=== PATIENT | female | born 1990 | race Caucasian/White ===

== ENCOUNTER 2017-03-15 11:42 | Emergency (ER) | payer MEDICAID, OTHER ==
[2017-03-15 11:49] VITALS: BP 137/80; PULSE 80; TEMP 97; O2SAT 100
[2017-03-15 11:50] VITALS: BMI 22.6
--- NOTE | 2017-03-15 12:10 | ED PDOC ---
HPI: General Adult Time Seen by Provider: 03/15/17 12:09 Chief Complaint (Nursing): Allergic Reaction Chief Complaint (Provider): possible allergic reaction History Per: Patient Additional Complaint(s): 26-year-old female presents to emergency department with swelling and erythema to both upper eyelids status post placement of last extensions 2 days ago. Patient believes she developed an allergy to the glue from the lash extensions. Patient applied topical Benadryl cream but this did not help. She denies any shortness of breath or throat discomfort. No rash noted. Past Medical History Reviewed: Historical Data, Nursing Documentation, Vital Signs Vital Signs: Last Vital Signs Temp 97 F L 03/15/17 11:49 Pulse 80 03/15/17 11:49 Resp BP 137/80 03/15/17 11:49 Pulse Ox 100 03/15/17 13:08 - Medical History PMH: Anxiety - Surgical History Surgical History: No Surg Hx - Family History Family History: States: No Known Family Hx - Living Arrangements Living Arrangements: With Family - Social History Current smoker - smoking cessation education provided: No Alcohol: None Drugs: Denies - Home Medications Home Medications: Ambulatory Orders Medication Instructions Recorded Prednisone 50 mg PO DAILY #5 tablet 03/15/17 - Allergies Allergies/Adverse Reactions: Allergies Allergy/AdvReac Type Severity Reaction Status Date / Time No Known Allergies Allergy Verified 11/20/15 13:22 Review of Systems ROS Statement: Except As Marked, All Systems Reviewed And Found Negative Constitutional: Negative for: Fever Eyes: Positive for: Other (swelling and redness to bilateral upper eyelids) ENT: Negative for: Throat Swelling Respiratory: Negative for: Cough, Shortness of Breath, SOB with Exertion Physical Exam - Reviewed Nursing Documentation Reviewed: Yes Vital Signs Reviewed: Yes - Physical Exam Appears: Positive for: Well, Non-toxic, No Acute Distress Head Exam: Positive for: ATRAUMATIC, NORMAL INSPECTION Skin: Positive for: Normal Color. Negative for: Rash Eye Exam: Positive for: EOMI, PERRL, Other (Edema and erythema noted to bilateral upper eyelids and bilateral periorbital regions, appearance consistent with localized allergic reaction) Cardiovascular/Chest: Positive for: Regular Rate, Rhythm Respiratory: Positive for: Normal Breath Sounds. Negative for: Wheezing, Respiratory Distress Neurologic/Psych: Positive for: Alert, Oriented - ECG O2 Sat by Pulse Oximetry: 100 Pulse Ox Interpretation: Normal Medical Decision Making Medical Decision Makin26 year old with localized allergic reaction Plan: test PO prednisone 60 mg dose in ED Rx given for 5 day course of prednisone, patient was also instructed to take 2 tabs benadryl q 6 hrs. Patient was instructed to avoid further use of eyelash extensions. Advised PMD follow up in 2-3 days. Disposition - Clinical Impression Clinical Impression: Allergic reaction - Patient ED Disposition Is Patient to be Admitted: No Counseled Patient/Family Regarding: Diagnosis, Need For Followup, Rx Given - Disposition Referrals: [facility] [Outside] Disposition: Routine/Home Disposition Time: 13:08 Condition: STABLE Additional Instructions: Avoid further use of lash extensions. Take prescription meds as directed. Take 2 tablets of [id number] Benadryl every 6 hours. Follow-up with primary doctor or clinic in 2-3 days. Prescriptions: Prednisone 50 mg PO DAILY #5 tablet Instructions: General Allergic Reaction (ED)
[2017-03-15] MEDS ORDERED: PrednisoLONE 15 mg/5 ml Oral Syrup (240 ml) ONE (12:47)
== END 2017-03-15 13:25 | disposition home or self-care (01) ==
LOC: H.ER 11:42
DX: T78.40XA Allergy, unspecified, initial encounter (principal); F41.9 Anxiety disorder, unspecified

== ENCOUNTER 2018-03-27 21:24 | Emergency (ER) | payer SELFPAY ==
[2018-03-27 21:25] VITALS: BMI 22.6
[2018-03-27 21:33] VITALS: BP 149/89; TEMP 98.4; O2SAT 96
--- NOTE | 2018-03-27 22:03 | ED PDOC ---
HPI: CCC, URI, Sore Throat Time Seen by Provider: 03/27/18 21:58 Chief Complaint (Nursing): ENT Problem Chief Complaint (Provider): Sore Throat History Per: Patient History/Exam Limitations: no limitations Have you had recent travel within the past 21 days to any of the following countries: [place], [place], [place] or [place]?: No Onset/Duration Of Symptoms: Days (six), Persistent Current Symptoms Are (Timing): Still Present Associated Symptoms: Sore Throat. denies: Cough Past Medical History Reviewed: Historical Data, Nursing Documentation, Vital Signs Vital Signs: Last Vital Signs Temp 98.4 F 03/27/18 21:30 Pulse 100 H 03/27/18 21:30 Resp 16 03/27/18 21:30 BP 149/89 03/27/18 21:30 Pulse Ox 96 03/27/18 22:04 - Medical History PMH: Anxiety - Family History Family History: States: Unknown Family Hx - Home Medications Home Medications: Ambulatory Orders Medication Instructions Recorded Prednisone 50 mg PO DAILY #5 tablet 03/15/17 Amoxicillin/Clavulanate [Augmentin 10 ml PO BID #200 ml 03/27/18 400-57] Lidocaine 2% Viscous 5 ml MM QID #100 ml 03/27/18 - Allergies Allergies/Adverse Reactions: Allergies Allergy/AdvReac Type Severity Reaction Status Date / Time No Known Allergies Allergy Verified 11/20/15 13:22 Review of Systems ROS Statement: Except As Marked, All Systems Reviewed And Found Negative Constitutional: Negative for: Fever ENT: Positive for: Throat Pain, Throat Swelling. Negative for: Mouth Swelling Physical Exam - Reviewed Nursing Documentation Reviewed: Yes Vital Signs Reviewed: Yes - Physical Exam Appears: Positive for: Well, Non-toxic, No Acute Distress. Negative for: Uncomfortable Head Exam: Positive for: ATRAUMATIC, NORMAL INSPECTION Skin: Positive for: Normal Color, Warm, Dry ENT: Positive for: Normal ENT Inspection, Pharynx Is (erythematous with mild exudate bilaterally), Pharyngeal Erythema, Tonsillar Exudate, Tonsillar Swelling (tonsils are +3 bilaterally and edematous) Neck: Positive for: Normal, Painless ROM, Supple. Negative for: Decreased ROM Cardiovascular/Chest: Positive for: Regular Rate, Rhythm Respiratory: Positive for: Normal Breath Sounds Pulses-Carotid (L): 2+ Pulses-Carotid (R): 2+ Pulses-Radial (L): 2+ Pulses-Radial (R): 2+ Lymphatic: Positive for: Adenopathy. Negative for: Axilla Node Tenderness ( cervical lymphadenopathy bilaterally) - ECG O2 Sat by Pulse Oximetry: 96 Medical Decision Making Medical Decision Making: sore throat vs strep pharyngitis based on centaur criteria, lack of cough + cervical lymph + exudate + fever - dx with strep and treated with augmentin Disposition - Clinical Impression Clinical Impression: Strep pharyngitis, Tonsillitis - Patient ED Disposition Is Patient to be Admitted: No Doctor Will See Patient In The: Office Counseled Patient/Family Regarding: Diagnosis, Need For Followup, Rx Given - Disposition Disposition: Routine/Home Disposition Time: 22:06 Condition: STABLE Prescriptions: Amoxicillin/Clavulanate [Augmentin 400-57] 10 ml PO BID #200 ml Lidocaine 2% Viscous 5 ml MM QID #100 ml Instructions: Sore Throat in Adults, Strep Throat (DC), Sore Throat, Adult (DC) Forms: [email or web address] ([place])
[2018-03-27 22:18] VITALS: PULSE 98; RESP 18
== END 2018-03-27 22:13 | disposition home or self-care (01) ==
LOC: H.ER 21:24
DX: J02.0 Streptococcal pharyngitis (principal); J03.90 Acute tonsillitis, unspecified